=== PATIENT | male | born 2000 | race Caucasian/White ===

== ENCOUNTER 2021-02-15 15:57 | Emergency (ER) | payer BC, SELFPAY ==
--- NOTE | 2021-02-15 16:07 | ED.MALEGU ---
HPI - Male Genitourinary General Chief complaint: Urogenital-Male Stated complaint: STD CHECK Time Seen by Provider: 02/15/21 16:07 Source: patient and RN notes reviewed History of Present Illness HPI Narrative: Patient is a 20-year-old male who presents the urgent care with his girlfriend with complaints of contact with trichomonas. Girlfriend states that she was tested recently and was positive for trichomonas. Patient denies of any penile drainage, discharge or pain with urination or intercourse. States that he just wants to be treated for the trick . No other acute complaints. No acute distress noted. Patient and girlfriend aware of the plan of care. Some parts of this dictation were generated by voice recognition software and may contain typographical and/or grammatical inaccuracies. Related Data Allergies Allergy/AdvReac Type Severity Reaction Status Date / Time No Known Allergies Allergy Verified 02/15/21 16:29 Review of Systems Review of Systems: CONSTITUTIONAL: Denies fever, chills, or sweats. EYES: Denies visual changes, redness, or discharge. ENT: Denies rhinorrhea, congestion, sore throat, or otalgia. CARDIOVASCULAR: Denies chest pain, palpitations, or edema. RESPIRATORY: Denies cough or dyspnea. GASTROINTESTINAL: Denies abdominal pain, nausea, vomiting, or diarrhea. GENITOURINARY: Denies dysuria or hematuria. Reports of contact with trichomonas SKIN: Denies rash or itching. MUSCULOSKELETAL: Denies back pain, joint pain, or myalgia. NEUROLOGIC: Denies headache, numbness, or weakness. All other systems reviewed are negative, except as documented in HPI. PMFSH Comments At the time of my signature, I reviewed and agree with the nursing past medical, surgical, social, and family history. There is no relevant family history pertinent to the patient complaint. Exam Narrative: GENERAL: This is a well-nourished, well-developed patient, in no apparent distress. HEAD: normocephalic, atraumatic. EYES: PERRL. Sclera clear/white. Vision is grossly intact. EARS: External ears normal NOSE: External nose normal with no obvious nasal discharge, nares without redness, no rhinorrhea. THROAT: Mucous membranes moist NECK: Neck supple CARDIOVASCULAR: Regular rate and rhythm without murmurs, gallops, or rubs. RESPIRATORY: Clear to auscultation. Breath sounds equal bilaterally. No wheezes, rales, or rhonchi. SKIN: warm, intact with no suspicious lesions or rash, good texture and turgor. NEURO: awake, alert, and oriented to person, place and time. There were no obvious focal neurologic abnormalities. EXTREMITIES: No clubbing, cyanosis, or edema. Course Vital Signs Vital signs: Vital Signs Temperature 99 F 02/15/21 16:10 Pulse Rate 121 H 02/15/21 16:10 Respiratory Rate 16 02/15/21 16:10 Blood Pressure 128/85 02/15/21 16:10 Pulse Oximetry 100 02/15/21 16:10 Temperature 99 F 02/15/21 16:10 Pulse Rate 121 H 02/15/21 16:10 Respiratory Rate 16 02/15/21 16:10 Blood Pressure 128/85 02/15/21 16:10 Pulse Oximetry 100 02/15/21 16:10 Reviewed MDM - Male Genitourinary MDM Narrative Medical decision making narrative: Patient is aware that we will treat him for trichomonas today and if he is positive for any other STDs he will need to return back to the facility for further treatment. Advised the patient to abstain from intercourse for at least 14 days after antibiotic regimen has been completed. Otherwise she will just be transferring the trichomonas [id number]. Make sure you let all partners know that you have had contact with strep and what STDs come back positive. Be sure to eat and drink with the antibiotic. Make sure to finish the antibiotic. If you wish to have any further STD checks you may follow-up at the [facility] department. Follow-up with your PCP within 2 to 5 days or for worsening symptoms or failure to improve. Differential Diagnosis Differential diagnosis: Likely urin
[2021-02-15 16:10] VITALS: BP 128/85; PULSE 121; RESP 16; TEMP 37.2; O2SAT 100
== END 2021-02-15 16:36 | disposition home or self-care (01) ==
PROVIDERS: Emergency Provider Nurse Practitioner Family
DX: Z20.2 Contact with and (suspected) exposure to infections with a predominantly sexual mode of transmission (principal)
CPT/HCPCS: 87491; 87591; 87661; 99213; G0463

== ENCOUNTER 2024-07-20 09:18 | Emergency (ER) | payer OTHER, SELFPAY ==
[2024-07-20 09:25] VITALS: BP 104/63; PULSE 108; RESP 16; TEMP 38.2; O2SAT 100
--- NOTE | 2024-07-20 09:36 | ED.NAVMDI ---
HPI - Nausea/Vomiting/Diarrhea General Chief complaint: Nausea/Vomiting/Diarrhea Stated complaint: Fever/Vomiting Time Seen by Provider: 07/20/24 09:36 Source: patient, RN notes reviewed and old records reviewed Mode of arrival: ambulatory Limitations: no limitations History of Present Illness HPI Narrative: 23 year old male presents to express care with complaints of feeling bad last night with cough, fever and vomiting episode. Patient reports that he had fever still this morning and also emesis again this morning with some continued nausea. Patient's significant other was diagnosed with influenza A 2-3 days ago. Patient reports that he has been coughing up some yellowish brown mucous. Patient reports that he has taken some Ibuprofen and also took Zofran this morning. Patient reports that he had to leave work last evening due to his illness. MD elicited complaint: nausea, vomiting, abdominal pain (mid) and other (fever, some cough, feel achy and has mild headache) Onset (ago): day(s) (yesterday) Description of vomiting: food contents and watery Associated nausea: Yes Associated abdominal pain: Yes Location of pain: other (mid abdominal pain) Pain consistency: intermittent Severity: moderate Treatment prior to arrival: NSAIDs and other (Zofran) Related Data Allergies Allergy/AdvReac Type Severity Reaction Status Date / Time No Known Allergies Allergy Verified 02/15/21 16:29 Review of Systems Review of Systems: CONSTITUTIONAL: Reports fever, chills, or sweats. EYES: Denies visual changes, redness, or discharge. ENT: Reports some rhinorrhea, congestion, no sore throat, or otalgia. CARDIOVASCULAR: Denies chest pain, palpitations, or edema. RESPIRATORY: Reports productive cough denies dyspnea. GASTROINTESTINAL: Reports some mid abdominal pain, nausea, vomiting,no diarrhea. GENITOURINARY: Denies dysuria or hematuria. SKIN: Denies rash or itching. MUSCULOSKELETAL: Denies back pain, joint pain, reports some myalgia NEUROLOGIC: Reports mild headache, no numbness, or weakness. PSYCHIATRIC: Denies anxiety or depression. All systems reviewed & are unremarkable except as noted in HPI and below [facility] Social History Social History (Updated 07/20/24 @ 11:04 by Ann Casanova NP) Smoking status: Current every day smoker Tobacco type: cigarettes Alcohol intake: current Alcohol use details: social Substance use: unknown Living arrangements: with family Gender identity (if verbalized by the patient): Male Comments At time of signature, agree with nursing past medical, surgical, social and family history. There is no relevant family history pertinent to the presenting complaint Exam Narrative: GENERAL: ill-appearing, well-nourished, and in no acute distress. HEAD: Normocephalic, atraumatic. EYES: PERRLA and EOMI. ENT: Nares red, clear rhinorrhea no epistaxis. Mucous membranes moist.TM's normal with good light reflex, throat pink with no swelling or pain NECK: Supple no lymphadenopathy CHEST: Clear to auscultation. No respiratory distress. some productive cough noted SAO2 100% on room air HEART: Regular rate and rhythm. No murmur heard. Normal peripheral pulses. ABDOMEN: Soft, nontender, no McBurney point tenderness, nondistended, normal active bowel sounds.nausea and vomiting starting last night EXTREMITIES: Normal range of motion. No edema. SKIN: Warm, dry, no rash. NEURO: No focal deficits. Alert and oriented x3. Course Course Emergency Course: Patient is aware of diagnosis, understands and agrees to treatment plan.? Anticipatory guidance given.? Patient agrees to follow-up as directed and is aware of reasons to seek care at the emergency department. Portions of this record may have been created with voice recognition software Level of Care: Express Care Visit Vital Signs Vital signs: Vital Signs Temperature 38.2 C H 07/20/24 09:25 Pulse Rate 108 H 07/20/24 09:25 Respiratory Rate 16 07/20/24 09:25 Blood Pressure 104/63 07/20/24 09:25 Pulse Oximetry 100 07/20/24 09:25 Oxygen Delivery Room Air 07/20/24 09:25 Temperature 38.2 C H 07/20/24 09:25 Pulse Rate 108 H 07/20/24 09:25 Respiratory Rate 16 07/20/24 09:25 Blood Pressure 104/63 07/20/24 09:25 Pulse Oximetry 100 07/20/24 09:25 Oxygen Delivery Room Air 07/20/24 09:25 Reviewed MDM - Nausea/Vomiting/Diarrhea Differential Diagnosis Differential diagnosis: Likely gastroenteritis, dehydration and other (influenza, gastritis, COVID, nausea and vomiting) Medical Records Attestation: I reviewed the patient's medical records. Lab Data Attestation: I reviewed the patient's lab results. Lab results narrative: Influenza A Positive, Influenza B negative, COVID antigen negative Labs: Lab Results 07/20/24 Range/Units 09:57 POC Influenza A Ag Positive (Negative) POC Influenza B Ag Negative (Negative) POC SARS CoV-2 Ag Negative (Negative) reviewed Critical Care Time Critical Care Time Critical Care Time: No Discharge Plan Discharge Clinical Impression: Influenza A Patient Disposition: Home, Self-Care Condition: Stable Instructions: Clear Liquid Diet (ED), Influenza (ED) Additional Instructions: Increase fluids especially juices and water clear liquid diet today and slowly advance diet avoid spicy foods [id number] cough and cold medicine of your choice for your symptoms Tylenol or ibuprofen for any fever pain heat to the face 20-30 minutes 4-6 times a day for pain Salt water gargles, throat lozenges or throat sprays as desired Zofran for nausea take as prescribed Tamiflu per patient request If your symptoms persist, change or worsen significantly before you can contact your personal physician then please, without delay, go to the emergency department for further evaluation. Follow-up with PCP in 7-10 days or sooner if needed Patient Language: Bulgarian Prescriptions: New ondansetron 4 mg tablet,disintegrating 4 mg PO Q6H PRN (Reason: nausea and vomiting) Qty: 20 0RF oseltamivir [Tamiflu] 75 mg capsule 75 mg PO Q12H 5 Days Qty: 10 0RF Follow-up/Referrals: PHYSICIAN,MANAGER OF APPLICATIONS DEVELOPMENT [Primary Care Provider] - Stand Alone Forms: Work/School Release IP Time of Disposition: 10:18 Quality [place] Coma Scale Eyes: Open Verbal: Oriented and Alert Motor: Follows Commands Corrie Coma Total Score: 15
[2024-07-20 09:59] LABS: EDCOVIDSCREEN Negative (Negative); EDINFLUASCREEN Positive (Negative); EDINFLUBSCREEN Negative (Negative)
== END 2024-07-20 10:25 | disposition home or self-care (01) ==
PROVIDERS: Emergency Provider Registered Nurse
DX: J10.1 Influenza due to other identified influenza virus with other respiratory manifestations (principal); Z20.822 Contact with and (suspected) exposure to COVID-19; F17.210 Nicotine dependence, cigarettes, uncomplicated
CPT/HCPCS: 87426; 87804; 99213; G0463